=== PATIENT | female | born 1950 | race Caucasian/White ===

== ENCOUNTER → 2018-02-24 | Outpatient (CLI) | payer OTHER, MEDICARE | LOC: FCPNEURO 10:16 | PROVIDERS: ATTEND Psychiatry & Neurology Sleep Medicine | DX: G47.33 Obstructive sleep apnea (adult) (pediatric) (principal); G47.34 Idiopathic sleep related nonobstructive alveolar hypoventilation ==

== ENCOUNTER 2018-08-05 05:41 | Inpatient (IN) | payer OTHER, MEDICARE ==
[2018-08-05] MEDS ORDERED: FAMOTIDINE 20 MG TAB PO ONE (06:07)
[2018-08-05] MEDS ORDERED: ceFAZolin 2 GM/DEXTROSE 100 ML IV ONE (06:07)
[2018-08-05] MEDS ORDERED: DEXAMETHASONE 4 MG/ML VIAL IVP ONE (06:07)
[2018-08-05] MEDS ORDERED: ACETAMINOPHEN 325 MG TAB PO ONE (06:07)
[2018-08-05] MEDS ORDERED: LR 1,000 ML IV ONE ×2 (06:09→06:45)
--- NOTE | 2018-08-05 06:22 | PDHPUP ---
History & Physical Update H&P update statement: This history and physical update is based on an assessment of the patient which was completed after admission or registration (within 24 hours), but prior to the surgery/procedure. H&P update: H&P reviewed & patient examined, no change in patient's condition since H&P completed
[2018-08-05] MEDS ORDERED: TRANEXAMIC ACID 3,000 MG/50 ML BAG IRR ONE (06:56)
[2018-08-05] MEDS ORDERED: VANCOMYCIN 1 GM VIAL ONE (06:56)
[2018-08-05] MEDS ORDERED: MIDAZOLAM 2 MG/2 ML VIAL ONE ×2 (07:28→07:32)
[2018-08-05] MEDS ORDERED: PROPOFOL/EMULSION 500 MG/50 ML BOTTLE IV ONE (07:32)
[2018-08-05] MEDS ORDERED: BUPIVACAINE/DEXTROSE 7.5MG/ML 2 ML SPINAL AMP SP ONE (07:32)
[2018-08-05] MEDS ORDERED: TRANEXAMIC ACID 3,000 MG in NS (SYRINGE) 50 ML IRR ONE (08:00)
[2018-08-05] MEDS ORDERED: ROPIVACAINE 0.2% 80 MG, EPINEPHrine 0.2 MG, KETOROLAC TROMETHAMINE 30 MG in SYRINGE 0 ML IU ONE (08:00)
[2018-08-05] MEDS ORDERED: NALOXONE HCL 0.4 MG/ML INJ IVP PRN (08:22)
[2018-08-05] MEDS ORDERED: ALBUTEROL 3 ML DEYVIAL IH PRN (08:22)
[2018-08-05] MEDS ORDERED: LIDOCAINE 2% 5 ML SDV ONE (08:22)
[2018-08-05] MEDS ORDERED: DIAZEPAM 5 MG/ML 1 ML SYR IVP PRN (08:22)
[2018-08-05] MEDS ORDERED: fentaNYL 100 MCG/2 ML INJ IVP PRN (08:22)
[2018-08-05] MEDS ORDERED: ROPIVACAINE HCL 150 MG/30 ML INJ ONE (08:22)
[2018-08-05] MEDS ORDERED: LR 500 ML IV PRN (08:22)
[2018-08-05] MEDS ORDERED: DEXAMETHASONE 4 MG/ML VIAL IVP PRN (08:22)
[2018-08-05] MEDS ORDERED: ONDANSETRON 4 MG/2 ML VIAL IVP PRN ×2 (08:22→09:56)
--- NOTE | 2018-08-05 08:22 | PDANEPAE ---
ANE Past Medical History - Cardiovascular History Hx Hypertension: Yes Hx Arrhythmias: No Hx Chest Pain: No Hx Coronary Artery / Peripheral Vascular Disease: No Hx CHF / Valvular Disease: No Hx Palpitations: No Cardiovascular History Comment: pcp monitors bp medications - Pulmonary History Hx COPD: No Hx Asthma/Reactive Airway Disease: No Hx Recent Upper Respiratory Infection: No Hx Oxygen in Use at Home: Yes O2 in Use at Home (L/minute): 2l at noc Hx Sleep Apnea: No Sleep Apnea Screening Result - Last Documented: Positive Pulmonary History Comment: jorge triggers, hypoxia uses o2 - Neurologic History Hx Cerebrovascular Accident: No Hx Seizures: Yes Hx Dementia: No Neurologic History Comment: tinnitus- hearing aides help. seizures with toxemia during - Endocrine History Hx Diabetes: No - Renal History Hx Renal Disorders: Yes Renal History Comment: nephritis as child - Liver History Hx Hepatic Disorders: No - Neurological & Psychiatric Hx Hx Neurological and Psychiatric Disorders: Yes Neurological / Psychiatric History Comment: depression most of adult life. anxiety attacks - Cancer History Hx Cancer: No - Congenital Disorder History Hx Congenital Disorders: No - GI History Hx Gastrointestinal Disorders: Yes Gastrointestinal History Comment: celiac disease. reflux. collagenous colitis - Other Health History Other Health History: wears glasses. bilateral hearing aides - Chronic Pain History Chronic Pain: Yes (bilateral knees, back) - Surgical History Prior Surgeries: c-sections. tonsillectomy as child. carpal tunnel- right ANE Review of Systems Review of Systems: - Exercise capacity METS (RN): 4 METS ANE Patient History - Allergies Allergies/Adverse Reactions: gluten Allergy (Verified 07/23/18 15:04) celiac disease levofloxacin Allergy (Verified 07/23/18 15:04) Loss of consciousness Macrolide Antibiotics Allergy (Verified 07/23/18 15:04) dizziness, nausea, can get very shaky SSRI's Allergy (Uncoded 07/23/18 15:04) trembling, dizziness - Home Medications Home Medications: Famotidine [Pepcid] 40 mg PO HS 07/23/18 [Last Taken 08/04/18] Hydrochlorothiazide [HCTZ (*)] 25 mg PO DAILY 07/23/18 [Last Taken 08/04/18] Mesalamine [Apriso 0.375 gm] 1.5 gm PO DAILY 07/23/18 [Last Taken 08/05/18] amLODIPine BESYLATE [Norvasc 5 mg (*)] 5 mg PO DAILY 07/23/18 [Last Taken ] Calcium Carb W/Vit D [Calcium Carb W/Vit D 500/200 (*)] 500 mg PO DAILY [Last Taken 07/22/18] Multivitamins [Multivitamin (*)] 1 each PO DAILY 07/30/18 [Last Taken 07/22/18] - NPO status NPO Since - Liquids (Date): 08/05/18 NPO Since - Liquids (Time): 05:30 NPO Since - Solids (Date): 08/04/18 NPO Since - Solids (Time): 18:30 - Smoking Hx Smoking Status: Never smoked - Family Anes Hx Family Hx Anesthesia Complications: none ANE Labs/Vital Signs - Vital Signs Blood Pressure: 172/97 Heart Rate: 64 Respiratory Rate: 20 O2 Sat (%): 96 Height: 167.64 cm Weight: 106.594 kg ANE Physical Exam - Airway Neck exam: FROM Mallampati Score: Class 1 Mouth exam: normal dental/mouth exam - Pulmonary Pulmonary: no respiratory distress, no rales or rhonchi, clear to auscultation - Cardiovascular Cardiovascular: regular rate and rhythym, no murmur, rub, or gallop - ASA Status ASA Status: III ANE Anesthesia Plan Anesthesia Plan: spinal Regional Anesthesia: single shot NB, adductor canal FNB
[2018-08-05] MEDS ORDERED: RANITIDINE 50 MG/2 ML VIAL ONE (08:41)
[2018-08-05] MEDS ORDERED: METOCLOPRAMIDE 10 MG/2 ML VIAL ONE (08:41)
[2018-08-05] MEDS ORDERED: ONDANSETRON 4 MG/2 ML VIAL ONE ×2 (08:41→10:01)
[2018-08-05] MEDS ORDERED: PROPOFOL 200 MG/20 ML VIAL ONE (09:17)
[2018-08-05] MEDS ORDERED: BISACODYL 10 MG SUPP PR PRN (09:56)
[2018-08-05] MEDS ORDERED: METOCLOPRAMIDE 10 MG/2 ML VIAL IVP PRN (09:56)
[2018-08-05] MEDS ORDERED: PROMETHAZINE HCL 25 MG SUPPR PR PRN (09:56)
[2018-08-05] MEDS ORDERED: POLYETHYLENE GLYCOL 3350 17 GM PKT PO PRN (09:56)
[2018-08-05] MEDS ORDERED: ONDANSETRON DISINTEGRATING 4 MG TAB PO PRN (09:56)
[2018-08-05] MEDS ORDERED: diphenhydrAMINE 25 MG CAP PO PRN (09:56)
[2018-08-05] MEDS ORDERED: MAGNESIUM HYDROXIDE 30 ML UDCUP PO PRN (09:56)
[2018-08-05] MEDS ORDERED: TEMAZEPAM 15 MG CAP PO PRN (09:56)
[2018-08-05] MEDS ORDERED: PROMETHAZINE HCL 25 MG/ML INJ IVP PRN ×2 (09:56→11:34)
[2018-08-05] MEDS ORDERED: DIPHENOXYLATE/ATROPINE LOMOTIL 1 TAB PO PRN (09:56)
[2018-08-05] MEDS ORDERED: CYCLOBENZAPRINE 10 MG TAB PO PRN (09:56)
[2018-08-05] MEDS ORDERED: LACTULOSE 20 GM/30 ML UDCUP PO PRN (09:56)
--- NOTE | 2018-08-05 09:56 | POSTOPPROG ---
Post Op Note Date of Operation: 08/05/18 Surgeon: Oleg Bass Monotype Mechanic: Clover Bass PA-C Anesthesiologist: Nicolle Charles Anesthesia: Spinal, Other (Specify) (adductor canal block) Pre-op Diagnosis: right knee OA Post-op Diagnosis: same Indication: right knee pain Procedure: RTKA Findings: severe OA of right knee Inf/Abcess present in the surg proc area at time of surgery?: No EBL: 50-100
[2018-08-05] MEDS ORDERED: PROMETHAZINE HCL 25 MG/ML INJ ONE (10:01)
--- NOTE | 2018-08-05 10:42 | POSTANESTH ---
Post Anesthetic Evaluation Cardiovascular Status: Normal, Stable, Similar to Pre-Op Cond Respiratory Status: Normal, Stable, Similar to Pre-op Cond. Level of Consciousness/Mental Status: Can Participate in Eval Pain Control: Adequate, Prn Tx Ordered Nausea/Vomiting Control: Adequate, Prn Tx Ordered Complications Possibly Related to Anesthesia: None Noted (ACB done in PACU, US guided)
[2018-08-05] MEDS: LR 1,000 ML IV SCH (12:54)
--- NOTE | 2018-08-05 14:18 | PDMN ---
Medical Necessity Medical necessity: Pt meets IP criteria per PA; est los >2 mn s/p R TKA (cpt 46278); recommending IP due to hx of colitis, celiac disease & pain control; per order 08/05/18
[2018-08-05] MEDS: HYDROCHLOROTHIAZIDE 25 MG TAB PO SCH (16:02)
[2018-08-05] MEDS: ceFAZolin 2 GM/DEXTROSE 100 ML IV SCH (16:48)
[2018-08-05] MEDS: ACETAMINOPHEN 325 MG TAB PO SCH ×2 (16:48→22:29)
[2018-08-05] MEDS: oxyCODONE IR 5 MG TAB PO PRN ×2 (17:03→21:18)
[2018-08-05] MEDS: ASPIRIN 81 MG CHEWABLE TAB PO SCH (21:18)
[2018-08-05] MEDS: SENNOSIDES/DOCUSATE SODIUM TAB PO SCH (21:19)
[2018-08-05] MEDS: FAMOTIDINE 20 MG TAB PO SCH (21:19)
[2018-08-06] MEDS: oxyCODONE IR 5 MG TAB PO PRN ×2 (00:19→04:18)
[2018-08-06] MEDS: ceFAZolin 2 GM/DEXTROSE 100 ML IV SCH (00:20)
[2018-08-06] MEDS: LR 1,000 ML IV SCH (00:20)
[2018-08-06] MEDS: ACETAMINOPHEN 325 MG TAB PO SCH ×2 (04:27→10:20)
[2018-08-06] MEDS ORDERED: amLODIPine BESYLATE 5 MG TAB PO SCH (09:00)
--- NOTE | 2018-08-06 09:19 | SOAPPROG ---
SOAP Progress Note Assessment/Plan: Assessment: Patient is doing well POD 1 s/p R TKA Pain management: pain is well controlled on oral pain meds. VTE ppx: recommend aspirin 81 mg BID for 4 weeks, cont DEV and SCDs Anemia: level is expected initially postop. Asymptomatic. Continue to monitor nausea: patient reports increase nausea this morning. Has not had much to eat since surgery and has had quite a bit of oral narcotics. zofran given this morning. will send script to home pharmacy for patient D/c planning:. Patient must be released from PT before discharge to home. May discharge to home today as long as zofran alleviates nausea and patient is able to work well with PT. otherwise, patient has done well postoperatively and better than anticipated. Plan: 08/06/18 09:16 Subjective: Nela is doing well today, denies SOB, chest pain and N/v Objective: Vital Signs Temp Pulse Resp BP Pulse Ox 36.1 C 59 L 15 147/76 H 96 08/06/18 07:42 08/06/18 07:42 08/06/18 07:42 08/06/18 07:42 08/06/18 07:42 Laboratory Results 08/06/18 05:35 08/05/18 08/06/18 08/07/18 05:59 05:59 05:59 Intake Total 2425 Output Total 1600 Balance 825 RLE: incision dressing is clean and dry, NVI, +pf/df ICD10 Worksheet Patient Problems: Problems Problem Status Onset Primary localized osteoarthritis of right knee Acute
[2018-08-06] MEDS: FAMOTIDINE 20 MG TAB PO SCH (10:15)
[2018-08-06] MEDS: HYDROCHLOROTHIAZIDE 25 MG TAB PO SCH (10:15)
[2018-08-06] MEDS: SENNOSIDES/DOCUSATE SODIUM TAB PO SCH (10:15)
[2018-08-06] MEDS: ASPIRIN 81 MG CHEWABLE TAB PO SCH (10:16)
--- NOTE | 2018-08-06 11:27 | ASMTLACE ---
BALTAZAR Length of stay for Answers: 2 days current admission Acuity / Level of Answers: Yes Care: Did the patient have an inpatient admission? # of Emergency department Answers: 0 visits in the last 6 months Score: 5 Date Signed: 08/06/2018 11:26 AM Electronically Signed By:LIDA Alaniz
[2018-08-06 15:40] VITALS: BP 147/67
--- NOTE | 2018-08-06 19:40 | GOP ---
[f rep st] OPERATIVE REPORT DATE OF OPERATION: 08/05/2018 SURGEON: Petra Bass MD SYRUP BLENDER: 1. Ashley Bass, PAC. 2. Zahra Randle PAC. ANESTHESIA: Spinal. PREOPERATIVE DIAGNOSIS: Right knee osteoarthrosis. POSTOPERATIVE DIAGNOSIS: Right knee osteoarthrosis. PROCEDURE PERFORMED: Right total knee arthroplasty. FINDINGS: ESTIMATED BLOOD LOSS: 30 cc. INDICATIONS: This is a 67-year-old female with severe and progressive pain and deformity of the righ t knee unresponsive to conservative care. Risks and benefits of the surgical intervention were expla ined in detail. DESCRIPTION OF PROCEDURE: The patient was brought to the operative room and placed on the table in t he supine position. Spinal anesthesia was induced without difficulty. A pneumatic tourniquet was ap plied about the right proximal thigh, and the leg was prepped and draped in a sterile fashion. The l eg montoya was applied. After exsanguination by elevation the tourniquet was inflated to 250 mm of me rcury. Incision was made anterior medial from the tibial tuberosity to a point 2 cm proximal to the superior pole of the patella. Medial parapatellar arthrotomy was carried out from the superior pole of the p atella and posteriorly in line with the fibers of the Type II VMO. The medial collateral ligament wa s elevated and the infrapatellar fat pad was resected. The patella was everted and the articular surface was excised. A 32 mm patellar button was placed. T he distal femoral guide hole was drilled and the 6 degree alignment demond was placed. A 10 mm distal f emoral cut was made without difficulty. Attention was turned to the tibia and a standard 9 mm cut based on the lateral tibial condyle was per formed. The tibial articular surface was excised without difficulty. Attention was turned back to the femur and a size 5 Journey II femoral cutting block was positioned. Anterior, posterior, and chamfer cuts were made, followed by the intercondylar box cut. The knee was extended and the remnants of the medial and lateral meniscus were excised. The posterio r capsule was injected with ropivacaine, epinephrine and Toradol. A size 4 Journey tibial tray was p ositioned. Trial reduction was then carried out. There was excellent range of motion, alignment, an d stability using the 9 mm polyethylene. All trials were then removed. The joint was thoroughly irrigated and carefully dried. Two packages of cement and 2 grams of vancomycin were mixed in the vacuum mixer and placed on the fixation surface s of all surfaces of the components. The components were implanted and all excess cement was thoroug hly removed. The permanent 9 mm polyethylene was placed without difficulty. The tourniquet was deflated and all bleeders were coagulated. The wound was thoroughly irrigated and closed using interrupted sutures of 2-0 Vicryl for the joint capsule. The subcu was closed with 3-0 Vicryl and the skin with 4-0 Monocryl. Dermabond and Steri-Strips were applied followed by a compre ssive dressing. The patient was then moved from the operating room to the recovery room in good cond ition, having tolerated the procedure well. PATHOLOGY: Severe tricompartmental osteoarthritis. /[id number]/MODL
--- NOTE | 2018-08-07 11:27 | GDS ---
[f rep st] DISCHARGE SUMMARY ADMISSION DIAGNOSIS: Right knee osteoarthritis. DISCHARGE DIAGNOSIS: Right knee osteoarthritis. PROCEDURE: Right total knee arthroplasty. VTE PROPHYLAXIS: Recommend aspirin 81 mg twice daily for 4 weeks. BRIEF DESCRIPTION OF HOSPITAL STAY: Patient was admitted for an elective joint arthroplasty. The pat ient tolerated the procedure well and has passed physical therapy. The patient was given appropriate antibiotic prophylaxis and venous thromboembolism prophylaxis. The patient's pain was well controlled on oral pain medication, patient was holding down food, and had urinated. Decision was made to disch arge the patient. The patient was given post-operative prescriptions pre-operatively. PLAN: To follow up as scheduled with Dr. Bass's office in 3 weeks. /[id number]/MODL
== END 2018-08-06 17:20 | disposition home or self-care (01) | DRG 470 ==
LOC: F3N 05:41 → FOB 12:45
PROVIDERS: ADMIT Orthopaedic Surgery; ATTEND Orthopaedic Surgery
PROC: 0SRC0J9 Replacement of Right Knee Joint with Synthetic Substitute, Cemented, Open Approach (ICD-10-PCS; principal; 2018-08-05 08:00)
DX: M17.11 Unilateral primary osteoarthritis, right knee (principal); I10 Essential (primary) hypertension; G47.33 Obstructive sleep apnea (adult) (pediatric)
CPT/HCPCS: 97116-GP; 97161-GP; C1713; J0171; J0690; J1100; J1885; J2250; J2405; J2550; J2704; J2765; J2780; J2795; J3370